=== PATIENT | male | born 1960 | race Caucasian/White ===

== ENCOUNTER → 2018-01-09 09:15 | Outpatient (CLI) | payer OTHER, SELFPAY ==
--- NOTE | 2018-01-09 09:30 | RAD_ITS ---
CLINICAL HISTORY: Male, 57 years old. One-month history of pain and weakness. PROCEDURE: ARTHROGRAM - LEFT SHOULDER CONSENT: The procedure as well as a benefits and possible complications including bleeding and infection were explained to the patient. Informed consent was obtained. FLUOROSCOPY TIME (if supplied): (0:53) minutes/seconds Injection Information: 10 cc of dilute MRI contrast. Number of images obtained: 5 TECHNIQUE: (All elements of maximal sterile barrier technique followed, including US elements as applicable) The patient was in the supine position. The overlying skin was prepped and draped in usual sterile fashion. Under direct fluoroscopic guidance, a 22-gauge spinal needle was placed into the shoulder joint. 2 cc of Isovue-300 was injected for confirmation. Following this, 10 cc of dilute Magnevist was injected. The patient tolerated the procedure well. A CT scan of the shoulder will follow. RAD/Arthrogram Shoulder IMPRESSION: Successful left shoulder arthrogram. A CT scan will follow. Electronically Signed: Alonzo Whaley MD at 13:38 EDT Tel [phone], Service support ,
--- NOTE | 2018-01-09 10:19 | CT_ITS ---
STUDY: CT LEFT SHOULDER following intra-articular contrast administration. REASON FOR EXAM: Male, 57 years old. Chronic left shoulder pain. RADIATION DOSAGE (If Supplied By Facility): CTDIvol = ( 26.06 ) mGy, DLP = ( 555.15 ) mGycm TECHNIQUE: The patient was scanned in a multi detector CT scanner. High resolution transaxial imaging was performed without the administration of intravenous contrast material. Sagittal and coronal images were reconstructed. Individualized dose optimization techniques were used for this CT. COMPARISON: None. FINDINGS: There is moderate osteoarthritis, with moderate articular joint space narrowing and moderate osteoarthritic spurring. Normal glenoid rim, neck and visualized scapula. Degenerative changes along the superior aspect of the humeral head. There is evidence of a torn rotator cuff. Normal coracoid process. Normal visualized lateral clavicle. Normal acromioclavicular articulation. There is a Type II morphology (curved), with a neutral orientation. Torn rotator cuff. CT/Extremity Upper WITH Contrast IMPRESSION: Torn rotator cuff. Degenerative changes of the glenohumeral joint. Electronically Signed: Alonzo Whaley MD at 9:20 EDT Tel [phone], Service support ,
== END ==
PROVIDERS: Family Provider Preventive Medicine Occupational Medicine; PCP Preventive Medicine Occupational Medicine; Visit Provider Orthopaedic Surgery
DX: M75.82 Other shoulder lesions, left shoulder (principal)
CPT/HCPCS: 23350; 73040; 73201; A9577; Q9967